=== PATIENT | male | born 1970 | race Two or more races ===

== ENCOUNTER 2023-08-06 17:54 | Emergency (ER) | payer OTHER ==
[~2023-08-06] VITALS: Ht 170.2 cm; Wt 65.9 kg
[~2023-08-06 17:54] MED LIST: NOCURR
[2023-08-06 18:33] VITALS: TEMP 98.2
[2023-08-06] MEDS ORDERED: POVIDONE-IODINE 10% 15 ML SOLUTION UD TP ONE (19:00)
[2023-08-06 20:25] LABS: SPECIMENTYPE,BODY FLUID SYNOVIAL
[2023-08-06 20:48] LABS: CRYSTALS, SYNOVIAL FLUID None Seen (None Seen)
[2023-08-06 21:34] LABS: APPEARANCE,UNSPUN,BODY FLUID CLOUDY (CLEAR); BASOPHILS,BODY FLUID 0 %; EOSINOPHILS,BF (ANAL) 0 %; LYMPHOCYTES,BODY FLUID 10 %; MONOCYTES,BODY FLUID 0 %; NEUTROPHILS,BODY FLUID 90 %; TOTAL VOLUME,BODY FLUID 10 mL; WBC, BODY FLUID 4650 /cu. mm.
[2023-08-06 21:36] LABS: APPEARANCE,SPUN,BODY FLUID CLEAR (CLEAR); COLOR,BODY FLUID ORANGE (LT YELLOW)
[2023-08-06] MEDS ORDERED: IBUPROFEN 600 MG TABLET PO ONE (22:00)
[2023-08-06] MEDS ORDERED: IBUP-1492 PO (22:17)
[2023-08-06 22:24] VITALS: BP 117/68; PULSE 65; RESP 16
== END 2023-08-06 22:50 | disposition home or self-care (01) ==
LOC: EMS 17:55
DX: M70.22 Olecranon bursitis, left elbow (principal); Y93.89 Activity, other specified
CPT/HCPCS: 20605; 87075; 87205; 89051; 89060; 99284; 87070; Z7502; Z7610